=== PATIENT | male | born 1940 | race Caucasian/White ===

== ENCOUNTER 2016-07-25 10:24 | Day surgery (SDC) | payer MEDICARE, BC ==
[2016-07-25] MEDS ORDERED: BUPIVACAINE 0.25% W/EPI MPF 30ML VIAL IVP ONE (14:00)
[2016-07-25] MEDS ORDERED: PROPOFOL 10 MG/ML VIAL IV ONE (15:25)
[2016-07-25] MEDS ORDERED: LIDOCAINE 2% MDV (20MG/ML) 20ML VIAL IV ONE (15:25)
[2016-07-25] MEDS ORDERED: *PACU ONLY* KETAMINE HCL 10 MG/ML (20ML) VIAL IV ONE (15:25)
[2016-07-25] MEDS ORDERED: FENTANYL PF 100MCG/2ML VIAL IV ONE (15:25)
--- NOTE | 2016-07-29 08:27 | Operative Note ---
OPERATIVE REPORT DATE OF PROCEDURE: 07/25/2016. SURGEON: Robert Dan D.O. REFERRING PHYSICIAN: Codi Singh D.O. 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 PROCEDURE: Wide excision of squamous cell cancer. INDICATIONS: The patient is a 76-year-old male whom I have seen multiple times in the past for various skin malignancies. He comes in with a large, crusting, fungating lesion on his forehead. This was biopsied and did come back consistent with squamous cell cancer. We did discuss excision versus observation and he desired surgical excision. The risks include bleeding, infection, acute and chronic pain, an unfavorable cosmetic outcome, and possible positive margins. He understood this fully. DESCRIPTION OF PROCEDURE: Therefore consent was signed and questions were answered. He was taken to the operating room and was placed in the supine position. Local intravenous sedation was given per the Department of Anesthesia. The patient's forehead was prepped and draped in the usual sterile fashion. The area around the mass was outlined. This was anesthetized with a total of 5.0 mL of 0.25% Sensorcaine with epinephrine. Wide excision was done. This was carried down to the subcutaneous tissues with cautery. This was then passed off the field. Hemostasis was noted. There was a wound vessel which was fairly large and was bleeding. This was controlled with 3-0 Vicryl in a figure of eight fashion. This wound was then undermined and closed with 3- 0 Vicryl and 2-0 nylon. He did tolerate the procedure well. The total size measured about 4.0 x 3.0 cm down to the fascia. Robert Dan D.O. Date Time JOB NUMBER: [id number] cc: Cdoi Singh D.O. [facility]
== END 2016-07-25 14:00 | disposition home or self-care (01) ==
LOC: SUR 10:24
PROVIDERS: ATTEND Surgery
DX: C44.329 Squamous cell carcinoma of skin of other parts of face (principal); Z79.01 Long term (current) use of anticoagulants; E78.00 Pure hypercholesterolemia, unspecified
CPT/HCPCS: 11643; 12053; 00300; 88305; J3010

== ENCOUNTER 2017-07-04 15:22 | Inpatient (IN) | payer MEDICARE, BC ==
[2017-07-04] MEDS ORDERED: ACETAMINOPHEN 500 MG TABLET PO PRN (16:16)
[2017-07-04] MEDS ORDERED: MECLIZINE 25 MG TABLET PO PRN (16:17)
--- NOTE | 2017-07-04 17:17 | Rehab Evaluation ---
Patient Information - Patient Information Diagnosis: Deconditioning Ordered Treatment: PT Evaluate and Treat Status: Initial Evaluation Surgery: No Past Medical/Surgical Hx: PAST MEDICAL/SURGICAL HISTORY Past Surgical History excision squamous cell right hand back sx 2015 excision bcc left ear stent in left carotid artery 3-4 years PMH - Respiratory Hx Respiratory Disorders No Hx Bronchitis Yes Comment: dry cough started today PMH - Cardiovascular Hx Cardiovascular Disorders Yes Hx Hypertension Yes Hx Vascular Disease Yes: L carotid stent Hx Coronary Stent Yes: left corotid Hx Transient Ischemic Attacks Yes: unsure, 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 Elevated cholesterol PMH - Neuro Hx Neurological Disorders Yes Hx Cerebrovascular Accident Yes: possibly tia Hx Dementia Yes Hx Dizziness Yes: Occ Hx Headaches Yes: occass Hx Transient Ischemic Attacks Yes: unsure, 10 years ago (TIA) Comment: tremors PMH - GI Hx Gastrointestinal Disorders Yes Hx Gastrointestinal Bleed Yes: Gastric ulcer Hx Gastroesophageal Reflux Yes: controlled with Omeprazole Hx Ulcer Yes: 11/17 Blleding duodenal ulcer PMH - Hx Genitourinary Disorders Yes Hx Prostate Problems Yes: Enlarged prostate PMH - Endocrine Hx Endocrine Disorders Yes Hx of NIDDM Yes: takes no meds. doesnt check blood sugar Comment: DIET CONTROLLED, DOES NOT CHECK SUGARS PMH - Musculoskeletal Hx Musculoskeletal Disorders Yes Hx Arthritis Yes: generalized Hx Back Injury Yes Hx Musculoskeletal Disease Yes PMH - Psych Hx Psychiatric Problems Yes Hx Anxiety Yes: On medications Hx Depression Yes Hx Suicide Attempt Yes: Talks about suicide, no attempt sees counselor Comment: SHORT TERM MEMORY ISSUES POSS. DEMENTIA NOT DIAGNOSED PMH - Hematology/Oncology Hx Hematology/Oncology Yes Disorders Hx Cancer Yes: skin Hx Chemotherapy No Hx Radiation Therapy No Social History: Detail (The patient reports that he lives in a two story home with his . He reports that there is a ramp at one entrance, and 5-6 steps with a railing to enter at another entrance. He says that he uses a tub/shower combination with a shower chair. He reports that the toilet is a standard height , and that the toilet and shower both have grab bars present. He reports that he uses a 2WW for ambulating, and does report a history of falls the last 2-3 weeks.) - Time With Patient Total Time Spent With Patient (Min): 35 Treatment Procedures: Detail (PT Initial Evaluation) Objective Data - Pain Pain Present: No Pain Intensity: 0 Pain Scale Used: Numeric (1 - 10) - Mental Status Patient Orientation: Oriented x3 - ROM Within normal limits (B LEs were within functional limits) - Strength/Tone Within normal limits (Bilateral Quads and Hip Flexors - 4/5 Bilateral HS, DF, PF - 4+/5) - Coordination Appears within normal limits for therapeutic activities (Rapid Alternating Movements - Supination/Pronation - WNL Alternating Toe Tapping - WNL Heel to Aguilar - Dysmetric on both sides - could not reach aguilar, but could move up the medial calf.) - Bed Mobility Needs Assist (The patient required moderate assist of 1 to transfer from supine to sit, and required max assist of 2 to scoot up in bed.) - Transfers Independent (Sit to stand - contact guard assist) - Balance Balance Sitting: Poor (During strength testing, the patient leaned posteriorly and did require use of the bed rail to stabilize himself.) Balance Standing: Fair (Immediate standing showed no loss of balance, but required holding of the walker to stay upright.) - Gait Detail (The patient was able to ambulate from his room to the middle of hallway and back to bed (about 20 feet total). He required the use of a 2WW and CGA x1 throughout. He did have complaints of dizziness, but was able to return to the bedside safely.) Therapy Assessment - Therapy Assessment Detail (The patient showed a decrease in strength in the lower extremities, decreased sitting and standing balance, and complaints of dizziness that impair his walking ability. The patient was able to complete Rapid Alternating Movements without issue. The patients most glaring concerns are his lack of balance in both sitting and standing, which increase his risk for a fall.) Patient Education - Patient Education Barriers To Learning: Age Related, Other (Previous problems with dementia) Problem List - Problem List Physical Therapy Problem List: Detail (1) Decreased Sitting balance 2) Decreased strength for functional activities and transfers 3) Difficulty with bed mobility. 4) Decreased endurance with ambulation) Goals - Goals Physical Therapy Goals: 1) The patient will increase his strength to 4+/5 in lower extremity muscles to increase functional ability in transfers and bed mobility. 2) The patient will require minimum assist of one for all bed mobility activities. 3) The patient will be able to ambulate 150 feet with a 2WW with supervision so he will be safe in the home upon discharge. 4) Assess balance using a functional scale. Prognosis - Prognosis Moderate Plan - Plan Physical Therapy Plan: The patient will be seen 1-2 times per week for lower extremity strengthening, transfer training, and gait training.
--- NOTE | 2017-07-04 20:19 | Swing Bed Certification/Recert ---
Initial Certification Due: 07/04/17 14 Day Re-Cert Due: 07/18/17 44 Day Re-Cert Due: 08/17/17 74 Day Re-Cert Due: 09/16/17 CERTIFICATION 3 CERTIFICATION OF PATIENT ADMISSION Required at time of admission. Due: 07/04/17 I certify that SNF services are required to be given on an inpatient basis because of the above named patient's need for intermediate care on a continuing basis for the condition(s) for which he/she was receiving inpatient hospital services prior to his/her transfer to the SNF. The patient's current needs for skilled care includes: [pt/ot eval and treatment , management of medications] Hien Khan, N.P. 07/04/17
--- NOTE | 2017-07-04 20:21 | History & Physical ---
History of Present Illness - Date Date of Service for History & Physical: 07/05/17 - History of Present Illness Admitting Diagnosis: Deconditioning History of Present Illness: Mr. Vásquez is a 77 year-old male who was admitted at [facility] from 06/29/17 to 07/04/17 for atrial flutter. He presented to the ED for dizziness and lightheadedness over the last year that had worsened with ambulation. He also reported dyspnea with ambulation. He denied heart palpitations and chest pain, recent illness, fever/chills. His history includes hypertension, type 2 diabetes, hyperlipidemia, Parkinson's with resting essential tremor, dementia, macrocytic anemia, former tobacco use, heavy alcohol use, basal cell carcinoma, and balloon angioplasty. His last stress test was 5 years ago and normal, per his . His PCP retired in May and he is scheduled to see a new PCP on Monday 07/10, Dr. Quiñones. During his admission at [facility], he was on telemetry, cardiology was consulted and he was placed on a heparin infusion. His EKG did demonstrate atrial flutter. His serial troponins were all negative. A CIWA scale was used to monitor for any withdrawal symptoms and psychiatry saw the pt. for alcohol abuse. Psych made some medication changes- recommended seroquel for agitation. Pt. was changed from heparin infusion to xarelto and carvedilol 12.5mg BID, he remained rate controlled. Head CT was negative for acute process. Echo: EF 60-65%, mild mitral regurgitation, normal LV size and systolic function. Dizziness/lightheadedness likely secondary to atrial flutter. He did have some urinary retention and a chairez was placed, he initially had some hematuria that resolved, it was recommended that he f/u with urology 2 weeks after discharge. PT and OT evaluated the pt. and recommended DAVID discharge for deconditioning. 07/05/17 1100: Pt. is presently sitting up in bed, he just finished his PT evaluation. He states that he is feeling well today, denies pain, and he has no concerns regarding his health. Plan to continue PT/OT for deconditioning. Plan to consult urology for urinary retention, chairez currently in place. Pt. has cardiology f/u with Dr. Gonzalez's PA. Will order labs for 2/01 to assess anemia and renal function. PCP: Dr. Quiñones Urology: (needs urology follow up in 2 weeks) General - Cognitive Patterns Speech: Normal Thought Process: Intact Thought Content: Normal Orientation: Person, Place, Responds to Name, Recognizes Familiar Faces or Places - Communication Preferred Language?: Fijian Operational Intelligence Officer Required: No Level of Education: College Preferred Method of Learning: Doing Comprehension Ability: No Impairment Able to Read: Yes Able to Write: Yes Select best description of speech pattern: Clear Speech Ability to express ideas and wants: Usually Understood Understanding verbal content: Usually Understands - Mood and Behavior Patterns Appearance: Well Groomed Mood: Normal Attitude: Cooperative Motor Activity: Calm Affect: Appropriate Hallucinations: Denies - Psychosocial Well-Being Usual Living Arrangement: Spouse Relationship Status: Current and Past Employment History: Retired - Physical Functioning Activity Level: Up with assist x2 Turning: With total assist ROM Ability: Moves all extremities Assistive Devices: 2 Wheel Walker Ambulation Ability: Dependent Bed Mobility: Needs Assist Transfer Ability: Dependent Bathing Ability: Dependent Personal Hygiene: Dependent Dressing Ability: Dependent Eating (Feeding) Ability: Needs Assist Toileting Ability: Dependent Administer Own Medication: Needs Assist - Continence Bowel Pattern: No Bowel Movement Bladder Pattern: Retention - Dental Status Unable to examine: No Broken or loosely fitting full or partial dentures: Yes No natural teeth or tooth fragment(s) (edentulous): No Abnormal mouth tissue (ulcers, masses, oral lesions, etc.): No Obvious or likely cavity or broken natural teeth: Yes Inflamed or bleeding gums or loose natural teeth: No Mouth/facial pain, discomfort or difficulty chewing: No - Nutrition Screening Poor oral intake > 1 week: No Unplanned weight loss in specified time frame: No Nutrition Support via tube feedings or parenteral nutrition: No Pressure Ulcer: No Significantly underweight define as BMI <18.5 kg/m2: No Albumin <2.5mg/dL: No Persistent nausea/vomiting/diarrhea >3 days: No Difficulty chewing/swallowing/mouth sores: No Admitting Diagnosis: No Nutrition Risk Score: Low Risk Review of Systems Constitutional: Reports: As per HPI, Weakness. Denies: Chills, Fever, Malaise, Night sweats, Weight change Eyes: Reports: As per HPI. Denies: Eye discharge, Eye pain, Photophobia, Vision change ENT: Reports: As per HPI. Denies: Congestion, Dental pain, Ear pain, Epistaxis , Hearing loss, Throat pain Respiratory: Reports: As per HPI. Denies: Cough, Dyspnea, Hemoptysis, Stridor, Wheezes Cardiovascular: Reports: As per HPI, Edema. Denies: Arrhythmia, Chest pain, Dyspnea on exertion, Murmurs, Orthopnea, Palpitations, Paroxysmal nocturnal dyspnea, Rheumatic Fever, Syncope Endocrine: Reports: As per HPI. Denies: Fatigue, Heat or cold intolerance, Polydipsia, Polyuria Gastrointestinal: Reports: As per HPI. Denies: Abdominal pain, Constipation, Diarrhea, Hematemesis, Hematochezia, Melena, Nausea, Vomiting Genitourinary: Reports: Retention Musculoskeletal: Reports: As per HPI. Denies: Arthralgia, Back pain, Gout, Joint swelling, Myalgia, Neck pain Skin: Reports: As per HPI. Denies: Bruising, Change in color, Change in hair/ nails, Lesions, Pruritus, Rash Neurological: Reports: Tremors, Other (Parkinson's, resting tremor) Psychiatric: Reports: Depression. Denies: Anxiety, Auditory hallucinations, Homicidal thoughts, Suicidal thoughts, Visual hallucinations Hematological/Lymphatic: Reports: As per HPI. Denies: Anemia, Blood Clots, Easy bleeding, Easy bruising, Swollen glands Past Medical History - SOCIAL HISTORY Smoking Status: Former smoker Alcohol Use: Heavy Alcohol Use Comment: wine every night - SURGICAL HISTORY Past Surgical History: excision squamous cell right hand. back sx 2015. excision bcc left ear. stent in left carotid artery 3-4 years - RESPIRATORY Hx Respiratory Disorders: No Hx Bronchitis: Yes - CARDIOVASCULAR Hx Cardio Disorders: Yes Hx Hypertension: Yes Hx Irregular Heartbeat: Yes (afib, aflutter) Hx Vascular Disease: Yes (L carotid stent) Comment:: Occasional uses walker, very sedentary. Elevated cholesterol - NEURO Hx Neuro Disorders: Yes Hx Dementia: Yes Hx Dizziness: Yes (Occ) Hx Headaches: Yes (occass) Hx Parkinson's Disease: Yes (bilateral hands shake) Hx TIA: Yes ( unsure, 10 years ago) Comment:: tremors - GI Hx GI Disorders: Yes Hx GI Bleed: Yes (Gastric ulcer) Hx Reflux: Yes (controlled with Omeprazole) - Hx Genitourinary Disorders: Yes Hx Bladder Problem: Yes Hx Prostate Problems: Yes (Enlarged prostate) Comment:: indwelling chairez placed at mgl due to urinary retention - ENDOCRINE Hx Endocrine Disorders: Yes Hx Thyroid Disease: No Comment:: DIET CONTROLLED, DOES NOT CHECK SUGARS - MUSCULOSKELETAL Hx Musculoskeletal Disorders: Yes Hx Arthritis: Yes (generalized) - PSYCH Hx Psych Problems: Yes Hx Depression: Yes Comment:: SHORT TERM MEMORY ISSUES POSS. DEMENTIA NOT DIAGNOSED - HEMATOLOGY/ONCOLOGY Hx Hematology/Oncology Disorders: Yes Hx Blood Transfusions: Yes (BLEEDING ULCER RECEIVED 5 UNITS) Family Medical History Any Significant Family History?: Yes Hx Depression: Father, Mother, Brother/Sister Hx Heart Disease: Father, Mother H&P Meds/Allergies - Allergies Allergies: Allergies Allergy/AdvReac Type Severity Reaction Status Date / Time cephalexin monohydrate AdvReac PT UNSURE Verified 09/28/15 16:25 [From Keflex] OF REACTION gabapentin AdvReac PT UNSURE Verified 09/28/15 16:25 OF REACTION paroxetine HCl [From Paxil] AdvReac PT UNSURE Verified 09/28/15 16:25 OF REACTION PRIMADONE AdvReac PT UNSURE Uncoded 09/28/15 16:25 OF REACTION - Active Medications Active Medications: Current Medications Acetaminophen (Tylenol 500mg Tab) 1,000 mg PO Q6H PRN PRN Reason: FEVER/PAIN Aspirin (Ecotrin (Ec)) 81 mg PO DAILY [facility] Atorvastatin Calcium (Lipitor) 20 mg PO QHS [facility] Calcium/Vitamin D (Calcium 500+D Tablet) 1 tab PO DAILY [facility] Carvedilol (Coreg) 12.5 mg PO BID [facility] Meclizine HCl (Antivert) 25 mg PO QID PRN PRN Reason: VERTIGO Memantine (Namenda) 10 mg PO BID [facility] Mirtazapine (Remeron) 7.5 mg PO QHS [facility] Multivitamins/Minerals (Centrum) 1 tab PO DAILY [facility] Patient Own Med: (Vorioxetine 10 Mg) 1 each PO 1230 [facility] Patient Own Med: (Finasteride 5 Mg) 1 each PO DAILY [facility] Quetiapine Fumarate (Seroquel) 50 mg PO QHS PRN PRN Reason: Agitation Ranitidine HCl (Zantac) 150 mg PO BID [facility] Rivaroxaban (Xarelto) 10 mg PO DAILY [facility] Tamsulosin HCl (Flomax) 0.4 mg PO DAILY [facility] Physical Exam - Vital Signs Vital Signs: Vital Signs - Last 24 Hrs Temp Pulse Resp BP Pulse Ox 07/04/17 16:30 98.8 F 78 18 156/82 95 - General General Appearance: Alert, Oriented x3, Cooperative, No acute distress - Head Head exam: Normal inspection Head exam detail: negative: Abrasion, Contusion - Eye Eye exam: Normal appearance, PERRL, Other (Glasses) Pupils: Normal accommodation - ENT ENT exam: Normal exam, Mucous membranes moist, Normal external ear exam, Normal orophraynx, TM's normal bilaterally Ear exam: Normal external inspection. negative: External canal tenderness Nasal Exam: Normal inspection. negative: Discharge, Sinus tenderness Mouth exam: Normal external inspection, Tongue normal Teeth exam: Normal inspection. negative: Dental caries Throat exam: Normal inspection. negative: Tonsillar erythema, Tonsillar exudate - Neck Neck exam: Normal inspection, Full ROM. negative: Tenderness - Respiratory Respiratory exam: Normal lung sounds bilaterally. negative: Respiratory distress - Cardiovascular Cardiovascular Exam: Irregular rhythm Peripheral Pulses: 2+: Dorsalis Pedis (R), Dorsalis Pedis (L) - GI/Abdominal GI/Abdominal exam: Soft, Normal bowel sounds. negative: Tenderness - Rectal Rectal exam: Deferred - exam: Other (Chairez in place, draining clear-yellow urine) - Extremities Extremities exam: Normal inspection, Normal capillary refill. negative: Tenderness - Neurological Neurological exam: Alert, Normal gait, Oriented X3, Other (resting tremor) - Psychiatric Psychiatric exam: Normal affect, Normal mood - Skin Skin exam: Dry, Other (scabbed lesions on face, head, and arms). negative: Rash Discharge Potential - Discharge Needs Community Services Used Prior to Admission: Transportation Patient Discharge Plan Description: Return Home Community Services Needed at Discharge: Home Delivered Meals, Home Health Aide, Home Health Nurse, Occupational Therapy, Physical Therapy, Transportation, Pathways to Better Health Plan - Swing Bed Certification Initial Certification Due: 07/04/17 14 Day Re-Cert Due: 07/18/17 44 Day Re-Cert Due: 08/17/17 74 Day Re-Cert Due: 09/16/17 - Detailed Diagnosis and Plan (1) Physical deconditioning Current Visit: Yes Status: Acute Base Code: R53.81 - OTHER MALAISE Comment : 07/05/17: Plan to rehab eval and treatment, treatment with ROM, strength/tone , coordination, bed mobility, transfers, balance, and gait. Per PT eval- pt. will be seen 1-2 times per week for lower extremity strengthening, transfer training, and gait training. (2) Atrial flutter Current Visit: Yes Status: Acute Base Code: I48.92 - UNSPECIFIED ATRIAL FLUTTER Comment: 07/05/17: Pt. admitted at [facility] for atrial flutter, was experiencing worsening dizziness/lightheadedness at home for about 1 year. Cardiology was consulted, echo done, EKG demonstrated A-flutter. Pt. was initially on heparin drip and changed to xarelto and coreg. Plan to continue xarelto 10mg daily and coreg 12.5mg bid. Pt. has cardiology follow up scheduled per social work. (3) Urinary retention Current Visit: Yes Status: Acute Base Code: R33.9 - RETENTION OF URINE, UNSPECIFIED Comment: 07/05/17: Pt. had urinary retention during admission at [facility]- chairez was placed and is still in place. Recommended f/u with urologist in 2 weeks. Social work is coordinating to have pt. follow up with Dr. Yousif here at specialty clinic. (4) Full code status Current Visit: Yes Status: Acute Base Code: Z78.9 - OTHER SPECIFIED HEALTH STATUS Comment: 07/05/17: Pt. is full code status
[2017-07-04] MEDS: CARVEDILOL 12.5 MG TABLET PO SCH (21:02)
[2017-07-04] MEDS: ATORVASTATIN 20 MG TABLET PO SCH (21:03)
[2017-07-04] MEDS: RANITIDINE HCL 150 MG TABLET PO SCH (21:03)
[2017-07-04] MEDS: MEMANTINE HCL 10 MG TABLET PO SCH (21:03)
[2017-07-04] MEDS: MIRTAZAPINE 15 MG TABLET PO SCH (21:03)
[2017-07-04] MEDS ORDERED: QUETIAPINE FUMARATE 25 MG TABLET PO PRN (22:00)
[2017-07-05] MEDS: MULTIVITAMINS/MINERALS TABLET PO SCH (09:30)
[2017-07-05] MEDS: RIVAROXABAN 10 MG TABLET PO SCH (09:30)
[2017-07-05] MEDS: TAMSULOSIN HCL 0.4 MG CAP.ER.24H PO SCH (09:30)
[2017-07-05] MEDS: CALCIUM CARB/VITAMIN D 500MG/200IU PO SCH (09:30)
[2017-07-05] MEDS: RANITIDINE HCL 150 MG TABLET PO SCH ×2 (09:30→21:51)
[2017-07-05] MEDS: ASPIRIN 81 MG TABEC PO SCH (09:30)
[2017-07-05] MEDS: MEMANTINE HCL 10 MG TABLET PO SCH ×2 (09:30→21:50)
[2017-07-05] MEDS: CARVEDILOL 12.5 MG TABLET PO SCH ×2 (09:30→21:51)
[2017-07-05] MEDS: PATIENT OWN MED: FINASTERIDE 5 MG PO SCH (09:35)
[2017-07-05] MEDS: [UNRECOGNIZED DRUG - OTHER] PO SCH (12:26)
--- NOTE | 2017-07-05 13:00 | Rehab Evaluation ---
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 Elevated cholesterol PMH - Neuro Hx Neurological Disorders Yes Hx Cerebrovascular Accident Yes: possibly tia Hx Dementia Yes Hx Dizziness Yes: Occ Hx Headaches Yes: occass Hx Parkinson's Disease Yes: bilateral hands shake Hx Transient Ischemic Attacks Yes: unsure, 10 years ago (TIA) Comment: tremors PMH - GI Hx Gastrointestinal Disorders Yes Hx Gastrointestinal Bleed Yes: Gastric ulcer Hx Gastroesophageal Reflux Yes: controlled with Omeprazole Hx Ulcer Yes: 15 Blleding duodenal ulcer PMH - Hx Genitourinary Disorders Yes Hx Bladder Problem Yes Hx Prostate Problems Yes: Enlarged prostate Comment: [place] [facility] [place] PMH - Endocrine Hx Endocrine Disorders Yes Hx Thyroid Disease No Hx of NIDDM Yes: takes no meds. doesnt check blood sugar Comment: DIET CONTROLLED, DOES NOT CHECK SUGARS PMH - Musculoskeletal Hx Musculoskeletal Disorders Yes Hx Arthritis Yes: generalized Hx Back Injury Yes Hx Musculoskeletal Disease Yes PMH - Psych Hx Psychiatric Problems Yes Hx Anxiety Yes: On medications Hx Depression Yes Hx Suicide Attempt Yes: Talks about suicide, no attempt sees counselor Comment: SHORT TERM MEMORY ISSUES POSS. DEMENTIA NOT DIAGNOSED PMH - Hematology/Oncology Hx Hematology/Oncology Yes Disorders Hx Cancer Yes: skin Hx Chemotherapy No Hx Radiation Therapy No Premorbid Status: Detail (Pt reports he lives with in a 1 story house, no basement. He reports 4-5 steps and etienne handrailings at the entrance. He reports having a tub/shower combination, no grab bar and he reports taking a bath 1 x weekly. His reports they have a walk in shower with shower seat and grab bars. He has a standard height toilet, no grab bar. He ambulated with a 2 wheeled walker and was Ind with showering and dressing. completes all home mgmt, meal prep and laundry. He reports his neighbor completes yard work.) Social History: Detail (Supportive .) Precautions: [place], Fall - Time With Patient Total Time Spent With Patient (Min): 45 Treatment Procedures: Detail (OT eval low complexity) Subjective Information - Subjective Information Per Patient, Other ( present at end of evaluation.) Objective Data - Pain Pain Present: No - Mental Status Patient Orientation: Person (Pt reports date as Jul, 2016, age as 76, oriented for location and birthday. Pt able to follow all instructions for evaluation although he repeatedly ask for whiskey or beer.), Place - Visual Perception Appears within normal limits for therapeutic activities (Pt wears glasses at all times.) - ROM Within normal limits (Etienne UE AROM WNL) - Strength/Tone Within normal limits (Etienne UE strength 4+/5 throughout although pt was short of breath with evaluation activities.) - Coordination Appears within normal limits for therapeutic activities - Bed Mobility Independent (Ind with supine to sit with verbal cues to use bed rails.) - Transfers Needs Assist (Sit to stand with CG assist.) - Balance Balance Sitting: Good Balance Standing: Fair - Sensation Intact - Gait Detail (Pt able to amb 5 feet with 2 wheeled walker with CG assist.) - ADL's/IADL's Detail (Pt able to complete shaving with electric razor Indly, doffed gown pants and doffed jeans including belt with assist for catheter and with CG assist for standing. Donned slip on shoes Indly. Nursing assisting with bathing, toileting tasks.) Therapy Assessment - Therapy Assessment Detail (Pt presents with impaired functional mobility needed for safe and Ind ADLs, decreased orientation, decreased Ind with showering/dressing activities and decreased overall endurance.) Problem List - Problem List Physical Therapy Problem List: Detail (1) Decreased Sitting balance 2) Decreased strength for functional activities and transfers 3) Difficulty with bed mobility. 4) Decreased endurance with ambulation) Occupational Therapy Problem List: Detail (1. Decreased Ind with total body dressing. 2. Decreased Ind with showering in sitting. 3. Decreased orientation. 4. Decreased functional mobility and overall endurance needed for safe and Ind ADLs.) Goals - Goals Physical Therapy Goals: 1) The patient will increase his strength to 4+/5 in lower extremity muscles to increase functional ability in transfers and bed mobility. 2) The patient will require minimum assist of one for all bed mobility activities. 3) The patient will be able to ambulate 150 feet with a 2WW with supervision so he will be safe in the home upon discharge. 4) Assess balance using a functional scale. Occupational Therapy Goals: 1. Pt will be oriented x 3. 2. Pt will be safe and Ind with total body dressing. 3. Pt will be safe and Ind with showering in sitting. 4. Pt will demonstrate improved endurance to allow safe functional mobility and Ind with self care activities. Prognosis - Prognosis Good Plan - Plan Physical Therapy Plan: The patient will be seen 1-2 times per week for lower extremity strengthening, transfer training, and gait training. Occupational Therapy Plan: OT 2-4 times weekly to address self cares, functional mobility, cognition and overall endurance needed to allow safe return home with spouse.
[2017-07-05] MEDS: MIRTAZAPINE 15 MG TABLET PO SCH (21:50)
[2017-07-05] MEDS: ATORVASTATIN 20 MG TABLET PO SCH (21:51)
[2017-07-06 06:34] LABS: BASO % 0.3 % (0-6); GRAN % 56.4 % (47-80); HEMOGLOBIN 13.5 gm/dl (14.0-18.0); LYMPH % 26.1 % (16-45); MEAN CELL VOLUME 98.3 fl (81-97); MEAN CORPUSCULAR HGB CONC 33.8 g/dl (32-36); MEAN PLATELET VOLUME 9.5 fl (7.4-10.4); MONO % 13.2 % (0-9); PLATELET COUNT 271 K/uL (130-400); RED BLOOD COUNT 4.07 M/uL (4.40-5.70); RED CELL DISTRIBUTION WIDTH 13.1 % (11.5-14.5); WHITE BLOOD COUNT W/O DIFF 9.5 K/uL (4.2-12.2)
[2017-07-06 06:35] LABS: MEAN CORPUSCULAR HEMOGLOBIN 33.1 pg (27-33)
[2017-07-06 06:58] LABS: ALBUMIN 3.4 g/dL (4.0-5.0); BILIRUBIN,TOTAL 0.8 mg/dL (0.2-1.0); CREATININE 1.4 mg/dL (0.7-1.2); TOTAL PROTEIN 6.7 g/dL (6.6-8.7)
[2017-07-06] MEDS: MEMANTINE HCL 10 MG TABLET PO SCH ×2 (09:22→21:33)
[2017-07-06] MEDS: MULTIVITAMINS/MINERALS TABLET PO SCH (09:22)
[2017-07-06] MEDS: RIVAROXABAN 10 MG TABLET PO SCH (09:22)
[2017-07-06] MEDS: CARVEDILOL 12.5 MG TABLET PO SCH ×2 (09:22→21:33)
[2017-07-06] MEDS: RANITIDINE HCL 150 MG TABLET PO SCH ×2 (09:22→21:33)
[2017-07-06] MEDS: CALCIUM CARB/VITAMIN D 500MG/200IU PO SCH (09:22)
[2017-07-06] MEDS: TAMSULOSIN HCL 0.4 MG CAP.ER.24H PO SCH (09:22)
[2017-07-06] MEDS: ASPIRIN 81 MG TABEC PO SCH (09:22)
[2017-07-06] MEDS: PATIENT OWN MED: FINASTERIDE 5 MG PO SCH (09:23)
--- NOTE | 2017-07-06 10:26 | Physical Therapy Tx Note ---
Physical Therapy Tx Note - Treatment Note Tolerated: Good Total Time Spent With Patient: 35 Physical Therapy Tx Note: Detail (Pt lying in bed upon arrival; awake/alert, cooperative for therapy. Required minimal assistance to come from sidelying to sitting at edge of bed. Able to sit unsupported for LE and UE exercise w/o loss of balance. Performed 10 reps each of seated marching, hip adduction w/ pillow, knee extension (LAQ), heel slides x 20, heel and toe raises; 5 reps each of shoulder flexion, abduction, elbow flexion/extension. Sit to stand at 2 wheeled walker w/SBA; ambulated from bedside to nrsg station and back to bedside w/SBA (about 74 feet). Pivoted to bedside chair and sat w/good control. Chair alarm set; pt independently initiated shaving w/electric razor. Instructed to call nrsg and wait for them to come to get back in bed or go to bathroom. Nrsg notified. Call light placed within reach.) Physical Therapy Problem List: Detail (1) Decreased Sitting balance 2) Decreased strength for functional activities and transfers 3) Difficulty with bed mobility. 4) Decreased endurance with ambulation) Physical Therapy Goals: 1) The patient will increase his strength to 4+/5 in lower extremity muscles to increase functional ability in transfers and bed mobility. 2) The patient will require minimum assist of one for all bed mobility activities. 3) The patient will be able to ambulate 150 feet with a 2WW with supervision so he will be safe in the home upon discharge. 4) Assess balance using a functional scale. Prognosis: Good Physical Therapy Plan: The patient will be seen 1-2 times per week for lower extremity strengthening, transfer training, and gait training.
[2017-07-06] MEDS: [UNRECOGNIZED DRUG - OTHER] PO SCH (12:04)
--- NOTE | 2017-07-06 13:58 | Physical Therapy Tx Note ---
Physical Therapy Tx Note - Treatment Note Tolerated: Good Total Time Spent With Patient: 30 Physical Therapy Tx Note: Detail (Pt in bed, sleeping upon arrival, but awakened easily and cooperative for therapy. CGA for sidelying to sit at edge of bed. Sit to stand at 2 wheeled walker w/SBA, ambulated from bedside to nrsg station back to bedside chair w/CGA (about 74 feet). VCs to pivot and reach for chair to sit. Sit/stand from bedside chair independently x 3. Balance training: normal stance, narrow stance, stride stances w/eyes open/closed, w/ head movements. Marching in place w/o UE support, side/forward/backward stepping, pivot 180 degrees w/CGA. non linear editor place, lift UE's overhead x 5. Transferred to bed w/CGA and VC's; fatigued. Independently positioned self in supine and scooted up in bed. Bed alarm reset; call light and bedside table in reach.) Physical Therapy Problem List: Detail (1) Decreased Sitting balance 2) Decreased strength for functional activities and transfers 3) Difficulty with bed mobility. 4) Decreased endurance with ambulation) Physical Therapy Goals: 1) The patient will increase his strength to 4+/5 in lower extremity muscles to increase functional ability in transfers and bed mobility. 2) The patient will require minimum assist of one for all bed mobility activities. 3) The patient will be able to ambulate 150 feet with a 2WW with supervision so he will be safe in the home upon discharge. 4) Assess balance using a functional scale. Prognosis: Good Physical Therapy Plan: The patient will be seen 1-2 times per week for lower extremity strengthening, transfer training, and gait training.
[2017-07-06] MEDS: ATORVASTATIN 20 MG TABLET PO SCH (21:32)
[2017-07-06] MEDS: MIRTAZAPINE 15 MG TABLET PO SCH (21:32)
--- NOTE | 2017-07-07 09:48 | Occupational Therapy Tx Note ---
Occupational Therapy Tx Note - Treatment Note Tolerated: Good Total Time Spent With Patient: 35 (ADL) Occupational Therapy Treatment Note: Detail (S: Pt awake and ready to get up. O: Supine to sit with verbal cues to use bed rail. Doffed gown and briefs Indly with SBA for standing. Donned shirt Indly, donned socks, underwear and jeans with assist for catheter and SBA for leaning forward and for standing to walker. Pt oriented to place, month and year. Sit to stand and amb to sink with 2 wheeled walker and SBA. Completed brushing hair and brushing teeth in standing with SBA. Pt amb back to chair with walker and SBA. Completed shaving using electric razor Indly. A: Pt requires SBA for self care activities for safety/mobility as well as assist for threading catheter through pants.) Occupational Therapy Problem List: Detail (1. Decreased Ind with total body dressing. 2. Decreased Ind with showering in sitting. 3. Decreased orientation. 4. Decreased functional mobility and overall endurance needed for safe and Ind ADLs.) Occupational Therapy Goals: 1. Pt will be oriented x 3. 2. Pt will be safe and Ind with total body dressing. 3. Pt will be safe and Ind with showering in sitting. 4. Pt will demonstrate improved endurance to allow safe functional mobility and Ind with self care activities. Prognosis: Good Occupational Therapy Plan: OT 2-4 times weekly to address self cares, functional mobility, cognition and overall endurance needed to allow safe return home with spouse.
--- NOTE | 2017-07-07 09:53 | Discharge Summary ---
Providers Discharge Summary Date: 07/07/17 Date of admission: 07/04/17 16:07 Expected Date of Discharge: 07/07/17 Attending physician: BREANA BLANKENSHIP Consults: Urology: 07/14 Dr. Marquez Cardiology: 07/18 Dr. Gonzalez Physical Exam - Vital Signs Vital Signs: Vital Signs - Last 24 Hrs Temp Pulse Resp BP Pulse Ox 07/06/17 22:00 97.9 F 76 18 171/70 97 07/06/17 10:00 98.3 F 73 18 124/63 99 - General General Appearance: Alert, Oriented x3, Cooperative, No acute distress - Head Head exam: Normal inspection Head exam detail: negative: Abrasion, Contusion - Eye Eye exam: Normal appearance, PERRL, Other (Glasses) Pupils: Normal accommodation - ENT ENT exam: Normal exam, Mucous membranes moist, Normal external ear exam, Normal orophraynx, TM's normal bilaterally Ear exam: Normal external inspection. negative: External canal tenderness Nasal Exam: Normal inspection. negative: Discharge, Sinus tenderness Mouth exam: Normal external inspection, Tongue normal Teeth exam: Normal inspection. negative: Dental caries Throat exam: Normal inspection. negative: Tonsillar erythema, Tonsillar exudate - Neck Neck exam: Normal inspection, Full ROM. negative: Tenderness - Respiratory Respiratory exam: Normal lung sounds bilaterally. negative: Respiratory distress - Cardiovascular Cardiovascular Exam: Irregular rhythm Peripheral Pulses: 2+: Dorsalis Pedis (R), Dorsalis Pedis (L) - GI/Abdominal GI/Abdominal exam: Soft, Normal bowel sounds. negative: Tenderness - Rectal Rectal exam: Deferred - exam: Other (Chairez in place, draining clear-yellow urine) - Extremities Extremities exam: Normal inspection, Normal capillary refill. negative: Tenderness - Neurological Neurological exam: Alert, Normal gait, Oriented X3, Other (resting tremor) - Psychiatric Psychiatric exam: Normal affect, Normal mood - Skin Skin exam: Dry, Other (scabbed lesions on face, head, and arms). negative: Rash Hospitalization - Hospitalization Admission Diagnosis: Deconditioning - Problem List (1) Physical deconditioning Current Visit: Yes Status: Acute Base Code: R53.81 - OTHER MALAISE Comment : 07/07/17: Plan to rehab eval and treatment, treatment with ROM, strength/tone , coordination, bed mobility, transfers, balance, and gait. Pt. has been getting in and out of bed and ambulating without assistance. PT working on lower extremity strength. [facility] services are being arranged for discharge. (2) Atrial flutter Current Visit: Yes Status: Acute Base Code: I48.92 - UNSPECIFIED ATRIAL FLUTTER Comment: 07/07/17: Pt. admitted at [facility] for atrial flutter, was experiencing worsening dizziness/lightheadedness at home for about 1 year. Cardiology was consulted, echo done, EKG demonstrated A-flutter. Pt. was initially on heparin drip and changed to xarelto and coreg. Plan to continue xarelto 10mg daily and coreg 12.5mg bid. Pt. has cardiology follow up on 07/18 ( Dr. Gonzalez). (3) Urinary retention Current Visit: Yes Status: Acute Base Code: R33.9 - RETENTION OF URINE, UNSPECIFIED Comment: 07/07/17: Pt. had urinary retention during admission at [facility]- chairez was placed and is still in place, draining clear/yellow urine. F/U with urologist on 07/14. (4) Full code status Current Visit: Yes Status: Acute Base Code: Z78.9 - OTHER SPECIFIED HEALTH STATUS Comment: 07/07/17: Pt. is full code status - Disposition Discharge home, [facility] Care services -PT for lower extremity strength -Chairez care - Hospitalization Course Disposition: Home Health Service Reason For Discharge/Transfer: Medical Stability Hospital Course: Mr. Vásquez is a 77 year-old male who was admitted at [facility] from 06/29/17 to 07/04/17 for atrial flutter. He presented to the ED for dizziness and lightheadedness over the last year that had worsened with ambulation. He also reported dyspnea with ambulation. He denied heart palpitations and chest pain, recent illness, fever/chills. His history includes hypertension, type 2 diabetes, hyperlipidemia, Parkinson's with resting essential tremor, dementia, macrocytic anemia, former tobacco use, heavy alcohol use, basal cell carcinoma, and balloon angioplasty. His last stress test was 5 years ago and normal, per his . His PCP retired in May and he is scheduled to see a new PCP on Monday 07/10, Dr. Quiñones. During his admission at [facility], he was on telemetry, cardiology was consulted and he was placed on a heparin infusion. His EKG did demonstrate atrial flutter. His serial troponins were all negative. A CIWA scale was used to monitor for any withdrawal symptoms and psychiatry saw the pt. for alcohol abuse. Psych made some medication changes- recommended seroquel for agitation. Pt. was changed from heparin infusion to xarelto and carvedilol 12.5mg BID, he remained rate controlled. Head CT was negative for acute process. Echo: EF 60-65%, mild mitral regurgitation, normal LV size and systolic function. Dizziness/lightheadedness likely secondary to atrial flutter. He did have some urinary retention and a chairez was placed, he initially had some hematuria that resolved, it was recommended that he f/u with urology 2 weeks after discharge. PT and OT evaluated the pt. and recommended DAVID discharge for deconditioning. 07/05/17 1100: Pt. is presently sitting up in bed, he just finished his PT evaluation. He states that he is feeling well today, denies pain, and he has no concerns regarding his health. Plan to continue PT/OT for deconditioning. Plan to consult urology for urinary retention, chairez currently in place. Pt. has cardiology f/u with Dr. Gonzalez's PA. Will order labs for 07/06 to assess anemia and renal function. 07/07/17 0955: Pt. states that he wants to go home today, he stated that he has no concerns regarding his health. Social work is contacting [facility] to arrange home health services, including medication administration, PT for lower extremity strength, and chairez care. Labs are stable, Hgb 13.5, Hct 40.0, MCV 98.3, B12 >2,000. Vital signs remain stable. Plan to discharge home today after home health services are in place. PCP: Dr. Quiñones (appt. on 07/11) Urology: Dr. Marquez (appt. on 07/14) Cardiology: Dr. Gonzalez (appt. on 07/18) Abnormal Labs: Abnormal Lab Results 07/06/17 07/06/17 07/06/17 Range/Units 06:16 06:17 06:17 RBC 4.07 L (4.40-5.70) M/uL Hgb 13.5 L (14.0-18.0) gm/dl Hct 40.0 L (42.0-52.0) % MCV 98.3 H (81-97) fl MCH 33.1 H (27-33) pg Monocytes % 13.2 H (0-9) % Creatinine 1.4 H (0.7-1.2) mg/dL Random Glucose 127 H (74-109) mg/dL Albumin 3.4 L (4.0-5.0) g/dL Albumin/Globulin Ratio 1.0 L (1.1-1.8) Vitamin B12 > 2000.0 H (232-1245) pg/mL Condition at Discharge: (2) Stable Discharge Diagnosis: Deconditioning Discharge Medications - Discharge Medications Prescriptions: Quetiapine Fumarate [Seroquel] 50 mg PO QHS PRN 30 Days #30 tablet PRN Reason: Agitation Ranitidine HCl [Zantac] 150 mg PO BID 30 Days #60 tablet Rivaroxaban [Xarelto] 10 mg PO DAILY 30 Days #30 tab Home Medications: Ambulatory Orders Carvedilol 12.5 mg PO BID 10/11/14 [Last Taken 1 Day Ago ~10/26/14] Clopidogrel Bisulfate [Clopidogrel] 75 mg PO QHS 10/11/14 [Last Taken 1 Day Ago ~10/26/14] Finasteride 5 mg PO QHS 10/11/14 [Last Taken 1 Day Ago ~10/26/14] Aspirin [Aspirin EC] 2 tab PO BID 12/10/14 [Last Taken Unknown] Atorvastatin Calcium [Lipitor] 20 mg PO DAILY 12/10/14 [Last Taken Unknown] Calcium Carbonate [Calcium] 500 mg PO DAILY 12/10/14 [Last Taken Unknown] Meclizine HCl [Antivert] 25 mg PO ASDIR PRN 12/10/14 [Last Taken Unknown] Multivitamin [Multi-Vitamin Daily] 1 each PO DAILY 12/10/14 [Last Taken Unknown] Tamsulosin HCl [Flomax] 0.4 mg PO DAILY 12/10/14 [Last Taken Unknown] Vitamin B Complex [B-50 Complex] 1 each PO DAILY 12/10/14 [Last Taken Unknown] Quetiapine Fumarate [Seroquel] 50 mg PO QHS PRN 30 Days #30 tablet 07/07/17 [ Last Taken Unknown] Ranitidine HCl [Zantac] 150 mg PO BID 30 Days #60 tablet 07/07/17 [Last Taken Unknown] Rivaroxaban [Xarelto] 10 mg PO DAILY 30 Days #30 tab 07/07/17 [Last Taken Unknown] Discharge Plan - Discharge Instructions Activity at Discharge: As Per Physical Therapy Diet at Discharge: Regular Diet Instructions: Urinary Retention in Men (GEN), Chairez Catheter Placement and Care (DC) Additional Instructions: Follow up appointments have been scheduled for you: 07/11 at 1:[address] Quiñones at [facility] [address], [address], [place], Please bring medical records, medication list, and discharge paperwork from your stay at [facility]. 07/14 at 8:[address] Marquez [address] [place], [place] [address], [place] Tu07/18 at 3:[address] Tolentino at [facility] [phone] Quality Measures - Quality Measures Quality Measures: Atrial Fibrillation & Atrial Flutter: Chronic Anticoagulation Therapy, Advance Directives, Documentation of Current Medications in Medical Record, Elder Maltreatment Screen and Follow-Up Plan, Screening for High Blood Pressure and F/U Documented - Current Medications Quality Measure: Measure #130: Documentation of Current Medications Documentation of Current Medications: <Current Medications Documented/Reviewed> [J8410] - Blood Pressure Screening Quality Measure: Screening for High Blood Pressure and Follow-Up Documented Does Patient Have Any of the Following: Active Dx of HTN Blood Pressure Classification: Pre-Hypertensive BP Reading Systolic Measurement: 156 Diastolic Measurement: 82 Screening for High Blood Pressure: Patient Exclusion, Hx of HTN [G9744] - Atrial Fibrillation and Atrial Flutter Quality Measure: Atrial Fibrillation & Atrial Flutter: Chronic Anticoagulation Therapy Does Patient Have Any of the Following: No CHADS2 Risk Stratification: Prior Stroke/TIA or Systemic Embolism, Age 75 or Greater, Hypertension Risk Stratification Summary: One or more high risk factors OR more than one moderate risk factor exists. [G8972] Anticoagulation Therapy: <Oral anticoagulant Prescribed> [G8967] - Advance Directives Quality Measure: Measure #47: Care Plan Advance Directives Established: No Advance Directives Information Provided To Patient: No Advance Directives on File: No Living Will: Yes Power of Bench Repair Technician: No Advance Care Planning: <Care Plan/Decision Maker Documented; Discussed & Documented> [6933F] - Elder Abuse Suspicion Index Screening: Elder Abuse Suspicion Index Screening Rely on people for bathing, dressing, shopping, banking, etc: Yes Prevented from getting food, clothes, medication, etc: No Made to feel shamed or threatened by someone: No Forced to sign papers or use money against will: No Feel afraid, touched in ways not wanted or hurt physically: No Poor eye contact, withdrawn, malnourished, cuts or bruises: No Screening Result: Negative result EASI Reference Information: Kojo SOLOMON, Jerel C, Maris D, Alpesh Garrett.Development and validation of a tool to assist physicians identification of elder abuse: The Elder Abuse Suspicion Index (EASI ). Journal of Elder Abuse and Neglect, 2008; 20 (3): 276-300. - Elder Maltreatment Screen Quality Measures: Elder Maltreatment Screen and Follow-Up Plan Elder Maltreatment Screen: <Negative, No Follow-Up Plan Required> [G5478]
[2017-07-07] MEDS: PATIENT OWN MED: FINASTERIDE 5 MG PO SCH (11:15)
[2017-07-07] MEDS: MEMANTINE HCL 10 MG TABLET PO SCH (11:15)
[2017-07-07] MEDS: MULTIVITAMINS/MINERALS TABLET PO SCH (11:16)
[2017-07-07] MEDS: TAMSULOSIN HCL 0.4 MG CAP.ER.24H PO SCH (11:16)
[2017-07-07] MEDS: CARVEDILOL 12.5 MG TABLET PO SCH (11:16)
[2017-07-07] MEDS: CALCIUM CARB/VITAMIN D 500MG/200IU PO SCH (11:16)
[2017-07-07] MEDS: RANITIDINE HCL 150 MG TABLET PO SCH (11:16)
[2017-07-07] MEDS: ASPIRIN 81 MG TABEC PO SCH (11:16)
[2017-07-07] MEDS: RIVAROXABAN 10 MG TABLET PO SCH (11:17)
--- NOTE | 2017-07-07 13:30 | Rehab Discharge Summary ---
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 Elevated cholesterol PMH - Neuro Hx Neurological Disorders Yes Hx Cerebrovascular Accident Yes: possibly tia Hx Dementia Yes Hx Dizziness Yes: Occ Hx Headaches Yes: occass Hx Parkinson's Disease Yes: bilateral hands shake Hx Transient Ischemic Attacks Yes: unsure, 10 years ago (TIA) Comment: tremors PMH - GI Hx Gastrointestinal Disorders Yes Hx Gastrointestinal Bleed Yes: Gastric ulcer Hx Gastroesophageal Reflux Yes: controlled with Omeprazole Hx Ulcer Yes: 15 Blleding duodenal ulcer PMH - Hx Genitourinary Disorders Yes Hx Bladder Problem Yes Hx Prostate Problems Yes: Enlarged prostate Comment: indwelling chairez placed at [facility] [place] due to urinary retention PMH - Endocrine Hx Endocrine Disorders Yes Hx Thyroid Disease No Hx of NIDDM Yes: takes no meds. doesnt check blood sugar Comment: DIET CONTROLLED, DOES NOT CHECK SUGARS PMH - Musculoskeletal Hx Musculoskeletal Disorders Yes Hx Arthritis Yes: generalized Hx Back Injury Yes Hx Musculoskeletal Disease Yes PMH - Psych Hx Psychiatric Problems Yes Hx Anxiety Yes: On medications Hx Depression Yes Hx Suicide Attempt Yes: Talks about suicide, no attempt sees counselor Comment: SHORT TERM MEMORY ISSUES POSS. DEMENTIA NOT DIAGNOSED PMH - Hematology/Oncology Hx Hematology/Oncology Yes Disorders Hx Cancer Yes: skin Hx Chemotherapy No Hx Radiation Therapy No Premorbid Status: Detail (Pt reports he lives with in a 1 story house, no basement. He reports 4-5 steps and ana handrailings at the entrance. He reports having a tub/shower combination, no grab bar and he reports taking a bath 1 x weekly. His reports they have a walk in shower with shower seat and grab bars. He has a standard height toilet, no grab bar. He ambulated with a 2 wheeled walker and was Ind with showering and dressing. completes all home mgmt, meal prep and laundry. He reports his neighbor completes yard work.) Social History: Detail (Supportive .) Precautions: [place], Fall - Time With Patient Total Time Spent With Patient (Min): 25 Treatment Procedures: Detail (PT Re-Evaluation and Gait Training) Objective Data - Pain Pain Present: No - Mental Status Patient Orientation: Person (Not to place. Thought he was at [facility], and thought that he had been there for 16 days. Required constant instructions to participate in activities.), Time - ROM Within normal limits - Strength/Tone Within normal limits (Initially patient's strength was 4/5 bilateral quads and hip flexors, and bilateral HS, PF/DF were 4+/5. At evaluation today, the patient 's strength was 5/5 throughout the LE musculature.) - Bed Mobility Independent (Supine to sit - Independent Sit to supine - Independent) - Transfers Independent (Sit to stand - Independent Stand to sit - Independent Tub Transfer - Independent/Supervision for safety due to cognition and due to poor safety judgement.) - Balance Balance Sitting: Fair (At initial evaluation the patient was not able to sit without assistance during muscle strength testing. At re-eval, the patient was able to steady himself without the same loss of balance. The patient was tested in his chair today, rather than at the edge of the bed initial evaluation.) Balance Standing: Fair (No change from initial evaluation. Patient still required the use of the walker to maintain upright posture when standing.) - Gait Detail (The patient was able to ambulate from his room to the nurse's station and back (about 52 feet total). He required the use of a 2WW and CGA throughout ambulation. The patient was able to ascend/descend 3 stairs with supervision for safety. He required the use of the hand railing on one side and the walker on the other side. Only had complaints of dizziness before sitting back in his chair.) Therapy Assessment - Therapy Assessment Detail (The patient was independent with bed mobility and transfers, including a tub transfer, but required supervision for safety for each transfer. The patient requires supervision for safety with ambulation, as well. Overall, the patient's strength has improved as he was 5/5 throughout the LEs. The patient's sitting balance has improved since initial evaluation, but he would still benefit from further supervision with sitting at the edge of bed. The patient would benefit from further PT in the home for further balance assessment and assessment of safety in the home environment. The patient would also benefit from a tub-bench with transfer seat for use in the home upon discharge. Swing bed coordinator was to contact about further equipment needs.) Problem List - Problem List Physical Therapy Problem List: Detail (1) Decreased sitting balance 2) Decreased in endurance with functional activities) Occupational Therapy Problem List: Detail (1. Decreased Ind with total body dressing. 2. Decreased Ind with showering in sitting. 3. Decreased orientation. 4. Decreased functional mobility and overall endurance needed for safe and Ind ADLs.) Goals - Goals Physical Therapy Goals: 1) The patient will increase his strength to 4+/5 in lower extremity muscles to increase functional ability in transfers and bed mobility - MET. 2) The patient will require minimum assist of one for all bed mobility activities - MET. 3) The patient will be able to ambulate 150 feet with a 2WW with supervision so he will be safe in the home upon discharge - PARTIALLY MET. 4) Assess balance using a functional scale - NOT MET Occupational Therapy Goals: 1. Pt will be oriented x 3. 2. Pt will be safe and Ind with total body dressing. 3. Pt will be safe and Ind with showering in sitting. 4. Pt will demonstrate improved endurance to allow safe functional mobility and Ind with self care activities. Prognosis - Prognosis Moderate Plan - Plan Physical Therapy Plan: Patient discharging to home today. The patient will be receiving home OT/PT services. Occupational Therapy Plan: OT 2-4 times weekly to address self cares, functional mobility, cognition and overall endurance needed to allow safe return home with spouse.
[2017-07-07] MEDS: [UNRECOGNIZED DRUG - OTHER] PO SCH (13:39)
--- NOTE | 2017-07-10 11:14 | Rehab Discharge Summary ---
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 Elevated cholesterol PMH - Neuro Hx Neurological Disorders Yes Hx Cerebrovascular Accident Yes: possibly tia Hx Dementia Yes Hx Dizziness Yes: Occ Hx Headaches Yes: occass Hx Parkinson's Disease Yes: bilateral hands shake Hx Transient Ischemic Attacks Yes: unsure, 10 years ago (TIA) Comment: tremors PMH - GI Hx Gastrointestinal Disorders Yes Hx Gastrointestinal Bleed Yes: Gastric ulcer Hx Gastroesophageal Reflux Yes: controlled with Omeprazole Hx Ulcer Yes: 15 Blleding duodenal ulcer PMH - Hx Genitourinary Disorders Yes Hx Bladder Problem Yes Hx Prostate Problems Yes: Enlarged prostate Comment: indwelling chairez placed at [facility] [place] due to urinary retention PMH - Endocrine Hx Endocrine Disorders Yes Hx Thyroid Disease No Hx of NIDDM Yes: takes no meds. doesnt check blood sugar Comment: DIET CONTROLLED, DOES NOT CHECK SUGARS PMH - Musculoskeletal Hx Musculoskeletal Disorders Yes Hx Arthritis Yes: generalized Hx Back Injury Yes Hx Musculoskeletal Disease Yes PMH - Psych Hx Psychiatric Problems Yes Hx Anxiety Yes: On medications Hx Depression Yes Hx Suicide Attempt Yes: Talks about suicide, no attempt sees counselor Comment: SHORT TERM MEMORY ISSUES POSS. DEMENTIA NOT DIAGNOSED PMH - Hematology/Oncology Hx Hematology/Oncology Yes Disorders Hx Cancer Yes: skin Hx Chemotherapy No Hx Radiation Therapy No Premorbid Status: Detail (Pt reports he lives with in a 1 story house, no basement. He reports 4-5 steps and etienne handrailings at the entrance. He reports having a tub/shower combination, no grab bar and he reports taking a bath 1 x weekly. His reports they have a walk in shower with shower seat and grab bars. He has a standard height toilet, no grab bar. He ambulated with a 2 wheeled walker and was Ind with showering and dressing. completes all home mgmt, meal prep and laundry. He reports his neighbor completes yard work.) Social History: Detail (Supportive .) Precautions: [place], Fall Objective Data - Pain Pain Present: No - Mental Status Patient Orientation: Oriented x3 - Visual Perception Appears within normal limits for therapeutic activities (Pt wears glasses at all times.) - ROM Within normal limits (Etienne UE AROM WNL) - Strength/Tone Within normal limits (Etienne UE strength 4+/5) - Coordination Appears within normal limits for therapeutic activities - Bed Mobility Independent (Ind with supine to sit) - Transfers Independent (SBA for transfers) - Balance Balance Sitting: Good Balance Standing: Fair - Sensation Intact - Gait Detail (Pt ambulating in room with 2 wheeled walker and SBA.) - ADL's/IADL's Detail (Pt able to complete dressing with assist for catheter, Ind with grooming /hygiene with SBA for static standing.) Therapy Assessment - Therapy Assessment Detail (Pt Ind with dressing, grooming/hygiene although he requires SBA for mobility.) Problem List - Problem List Physical Therapy Problem List: Detail (1) Decreased sitting balance 2) Decreased in endurance with functional activities) Occupational Therapy Problem List: Detail (1. Decreased Ind with total body dressing. 2. Decreased Ind with showering in sitting. 3. Decreased orientation. 4. Decreased functional mobility and overall endurance needed for safe and Ind ADLs.) Goals - Goals Physical Therapy Goals: 1) The patient will increase his strength to 4+/5 in lower extremity muscles to increase functional ability in transfers and bed mobility - MET. 2) The patient will require minimum assist of one for all bed mobility activities - MET. 3) The patient will be able to ambulate 150 feet with a 2WW with supervision so he will be safe in the home upon discharge - PARTIALLY MET. 4) Assess balance using a functional scale - NOT MET Occupational Therapy Goals: Goals Met: 1. Pt will be oriented x 3. 2. Pt will be safe and Ind with total body dressing. Goal Not assessed: 3. Pt will be safe and Ind with showering in sitting. Goal partially met: 4. Pt will demonstrate improved endurance to allow safe functional mobility and Ind with self care activities. Prognosis - Prognosis Good Plan - Plan Physical Therapy Plan: Patient discharging to home today. The patient will be receiving home OT/PT services. Occupational Therapy Plan: Pt discharged home with spouse. He will be receiving home OT/PT.
== END 2017-07-07 15:35 | disposition home health service (06) | DRG 948 ==
LOC: MEDSURG 16:07
PROVIDERS: ADMIT Internal Medicine; ATTEND Internal Medicine
DX: R53.81 Other malaise (principal); R33.9 Retention of urine, unspecified; Z78.9 Other specified health status; I10 Essential (primary) hypertension; E11.9 Type 2 diabetes mellitus without complications; Z79.84 Long term (current) use of oral hypoglycemic drugs; E78.5 Hyperlipidemia, unspecified; G20 Parkinson's disease; F03.90 Unspecified dementia, unspecified severity, without behavioral disturbance, psychotic disturbance, mood disturbance, and anxiety; D64.89 Other specified anemias; Z87.891 Personal history of nicotine dependence; Z72.89 Other problems related to lifestyle
CPT/HCPCS: 80053; 82607; 85025; 97110; 97165; 97530; 97535; 99306; 99316